=== PATIENT | female | born 1955 | race Caucasian/White ===

== ENCOUNTER → 2016-11-17 | Outpatient (CLI) | payer BC ==
[~2016-11-17] MED LIST: GABAPENTIN300 M2 PO; GABAPENTIN300 MG PO; IRON325 MG PO; LEVAQUIN PO; LOSARTAN-HCTZ1 EAC2 PO; MACROBID 100 M100 MG PO; MELOXICAM15 MG PO; METRONIDAZOLE PO; MOBIC PO; MOBIC15 MG PO; NEURONTIN PO; NEURONTIN300 MG PO; PATIENT'S PHARMACY; POTASSIUM CHLO10 ME1 PO; POTASSIUM99 M1 PO; PREDNISONE10 MG/DOSE; VICODIN 5/500 T1 TAB PO; VITAMIN D400 UNI2 PO; ZESTORETIC 10/11 TAB PO
--- NOTE | ~2016-11-17 | CT57 ---
[facility] A Service of [facility] RADIOLOGY TEXT RESULTS PATIENT: BO ANN LOCATION: [facility] : 59 UNIT #: [id number] AGE: [address]: Tamara Bell MD SEX: F ORDER DR: [id number] [facility] [address] [place], [place] [address] [id number] MR#: [id number] [facility] #: [id number] NAME: BO ANN. : 1955 SEX: F STUDY DATE/TIME: 11/17/2016 13:27 UNIT: CCA ROOM: STUDY DESCRIPTION: CT Chest Wo Cont Attending Physician: Tamara Bell M.D. Referring Physician: Tamara Bell M.D. Ordering Physician: Tamara Bell M.D. Primary Care Physician: Tamara Bell M.D. MEDICAL IMAGING REPORT This report is preliminary unless electronic signature is present EXAM CT chest without contrast. INDICATION Follow up pulmonary nodule. PROCEDURE Unenhanced CT of the chest. This CT exam was performed with one or more of the following radiation dose reduction techniques: automatic exposure control, adjustment of mA and/or kV according to patient size, and iterative reconstruction. COMPARISON CT of the abdomen and pelvis from 11/08/2015. FINDINGS Previously demonstrated subpleural nodule left lung base has resolved and probably represented a small area of atelectasis. There is no dense consolidation or persistent nodule. No adenopathy. No aggressive appearing bone lesions. IMPRESSION Previously demonstrated subpleural nodule left lung base has resolved and probably represented atelectasis. There is no acute finding in the chest and there is no persistent pulmonary nodule. No additional followup is required. Dictated by... Qamar Mckeon M.D. [facility] A Service [facility] RADIOLOGY TEXT RESULTS PATIENT: BO ANN LOCATION: [facility] : 59 UNIT #: [id number] AGE: [address]: Tamara Bell MD SEX: F ORDER DR: THIS IS AN ELECTRONICALLY VERIFIED REPORT Qamar Mckeon M.D. at 11/21/2016 7:07 AM TWIN/elysia TD: 11/20/2016 11:24 JOB #: [id number] MEDICAL IMAGING REPORT Page 1 of 1 COPY
== END | disposition home or self-care (01) ==
LOC: CCAT 12:44
DX: R91.1 Solitary pulmonary nodule (principal)
CPT/HCPCS: 71250

== ENCOUNTER 2016-11-23 09:18 | Inpatient (IN) | payer BC ==
--- NOTE | ~2016-11-23 | EKG ---
PATIENT: BO ANN UNIT #: [id number] Ventricular Rate: 81 BPM Atrial Rate: 81 BPM P-R Interval: 146 ms QRS Duration: 64 ms Q-T Interval: 364 ms QTC Calculation(Bezet): 422 ms P Welton: -6 degrees Calculated R Welton: 46 degrees Calculated T Welton: 47 degrees Diagnosis Line: Normal sinus rhythm Diagnosis Line: Low voltage QRS Diagnosis Line: Nonspecific ST abnormality Diagnosis Line: Abnormal ECG Diagnosis Line: When compared with ECG of 08-NOV-2015 18:47, Diagnosis Line: No significant change was found Diagnosis Line: Confirmed by HOLLY RUTH MD ([id number]) on Diagnosis Line: 11/24/2016 6:48:26 AM INTERPRETING DAVID SAUCEDA
--- NOTE | ~2016-11-23 | A ---
[facility] Therapy DATE: 11/24/16 Patient: BO ANN Physician: NEHA Address: [address] [place] [address] Room/Bed: [address] [place] [address], Zip: [place] [address] Admit Date: 11/23/16 Date of : [birth year] Height: 5 2 Weight: 157 71.5 NUTRITIONAL ASSESSMENT: REASON: 3 pts re: 8# unplanned weight loss 61 y/o female admitted for a crohn's flare up PMH: Crohn's disease, HTN Anthropometrics: ht: 5'2" wt: 157# BMI 28 Labs: K+ 2.6, Ca++ 7.5, Alb 2.5, GFR 41 Meds: tylenol, ferrous gluconate, zofran, NaCl, neurotin I/O & Bowel function: Skin Integrity: scar- abd, left ankle, no edema Diet: NPO for procedure Assessment: Chart reviewed, events noted. Pt is currently NPO awaiting an EGD. RD biomedical engineering internship visited pt at bedside. Pt has had two crohn's flare-ups this year with episodes of diarrhea. The pt reports she is under a lot of stress at work and does not always get to eat three meals a day. She reports her weight being 197# one year ago, indicating a 36# weight loss (18% BW severe). RD biomedical engineering internship stressed the importance of adequate PO intake. RD biomedical engineering internship offered to order her ensure clear or enlive and magic cup once her diet is advanced in order to promote weight maintenance and increase protein-energy intake. Pt was agreeable. RD will continue to follow. Dx: Unintentional weight loss r/t Crohn's disease, stress AEB pt reported 36# weight loss (18% BW) over the past year. Intervention: 1. Ensure supplements + magic cup when diet advances Monitoring, Evaluation and Goals: 1. Weight; maintain healthy weight 2. PO intake; once diet advanced consume/tolerate >50% of meals and/or supplements 3. GI; promote regular GI function Recommendations: 1. Once diet is advanced to clear liquids, please order ensure clear apple BID. [facility] DATE: 11/24/16 Patient: BO ANN Physician: NEHA Address: [address] [place] [address] Room/Bed: [address] [place] [address], Zip: [place] [address] Admit Date: 11/23/16 Date of : [birth year] Height: 5 2 Weight: 157 71.5 2. Once medically feasible, advance the pt to a heart healthy diet. Monitor tolerance of fiberous foods and add low fiber restriction if fiber is not well tolerated. 3. Once diet is advanced to full liquid or solid, please order ensure enlive strawberry BID and magic cup with dinner. 4. Encourage adequate PO intake as tolerated. RD will f/u per protocol as pt is at mild/moderate nutritional risk. Respectfully, ANGIE HUMMEL, clinical nursing intern Sultana Valladares, RD, LD [employer] cc: client file
--- NOTE | ~2016-11-23 | CO ---
Unit #: [id number] #: [id number] Patient: BO ANN [id number] [address] [address] [id number] I MR#: [id number] NAME: BO ANN. ROOM: 560 Age: 61 Sex: F Admission Date: 11/23/2016 : 1955 Attending Physician: Vimal Taveras M.D. Primary Care Physician: Tamara Bell M.D. Consultation Date: 11/23/2016 CONSULTATION REPORT PRIMARY CARE PHYSICIAN Tamara Bell M.D. REASON FOR CONSULTATION Nausea, vomiting, and diarrhea. The patient has known history of Crohn disease and terminal ileal resection. HISTORY OF PRESENT ILLNESS Ms. Adan is a pleasant 61-year-old white female, who is well known to me. She has a remote history of resection of the terminal ileum from Crohn disease and had been doing quite well until she apparently had a severe diarrhea for about 4 to 5 days with watery nonbloody bowel movements with occasional blood on wiping the bottom due to soreness in rectal area. In addition, she also has nausea, vomiting, epigastric pain. She was admitted with hypotension, hypokalemia, and acute kidney injury. The patient was given intravenous fluids and potassium supplementation at the time of admission. PAST MEDICAL HISTORY Significant for history of Crohn disease, status post ileocolonic resection/ anastomosis; history of hypertension. PAST SURGICAL HISTORY Included a partial colon resection. SOCIAL HISTORY Lives with the . Does not smoke or drink alcohol. 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 FAMILY HISTORY Significant for mother having colitis. Father had coronary artery disease. MEDICATIONS At home included meloxicam, gabapentin, iron, potassium, losartan. ALLERGIES To codeine. REVIEW OF SYSTEMS Detailed review of organ systems does not reveal any recent weight loss. No history of fever, chills, or rigors. No history of headache, seizures, chest pain, or syncope. No history of cough, expectoration, or hemoptysis. No history of dysuria, hematuria, or pyuria. No history of focal seizures or extremity weakness. Rest of the review of organ systems Unit #: [id number] #: [id number] Patient: BO ANN are unremarkable. PHYSICAL EXAMINATION GENERAL: She is awake, alert, and oriented, appears comfortable. VITAL SIGNS: Stable with a temperature of 98.4, pulse is 78 per minute and regular, respiratory rate 16, blood pressure is 146/70. HEENT: She has mild pallor. There being no icterus, lymphadenopathy, or peripheral edema. CARDIOVASCULAR: Normal heart sounds. No murmurs on auscultation. LUNGS: Reveal normal breath sounds. Good air entry. ABDOMEN: Soft and nontender. Liver and spleen are not palpable. Bowel sounds normal. DIAGNOSTIC STUDIES LABORATORY RESULTS: Shows urinalysis of 1+ bacteriuria. BUN and creatinine are 22 and 2 indicating acute kidney injury, and albumin is 2.8. CBC shows a hemoglobin of 10.8 with normochromic normocytic indices. CLINICAL IMPRESSION 1. The patient with nausea, vomiting, diarrhea of acute duration. This is most likely infectious enteritis rather than flare-up of Crohn's. 2. Acute kidney injury as a result of volume loss. 3. Hypokalemia for the same reason. 4. Prior history of Crohn disease, status post resection. MANAGEMENT PLAN The patient is already scheduled to have an outpatient colonoscopy; however, suggest doing a flexible sigmoidoscopy and an upper endoscopy later today or tomorrow morning for certain the diagnosis. The patient was reassured that the chances are that this is most likely infectious enteritis. The pros and cons of procedure, potential risks, complications were discussed with the patient and she was reassured. Thank you for asking me to see this pleasant woman. I appreciate the consult. Dictated by... Naida Rosa/rafa TD: 11/25/2016 17:28 JOB #: [id number] CC: Jessa Esparza M.D. CONSULTATION REPORT Page 1 of 1 X Akash Daniel MD X CONSULTATION REPORT
--- NOTE | ~2016-11-23 | OR ---
Unit #: [id number] #: [id number] Patient: BO ANN [id number] [address] [address] [id number] I MR#: [id number] NAME: OB ANN. ROOM: 560 Date of Procedure: 11/24/2016 Admission Date: 11/23/2016 Surgeon: Akash Daniel M.D. : 1955 Attending Physician: Vimal Taveras M.D. Primary Care Physician: Tamara Bell M.D. OPERATIVE REPORT ADDITIONAL ATTENDING PHYSICIAN Dr. Vimal Taveras. PRIMARY CARE PHYSICIAN Tamara Bell M.D. PREOPERATIVE DIAGNOSES Nausea, vomiting, diarrhea. The patient with history of Crohn disease, status post terminal ileal resection. PROCEDURES PERFORMED Upper gastrointestinal endoscopy and sigmoidoscopy. POSTOPERATIVE DIAGNOSES For upper endoscopy: The patient has small hiatus hernia. Otherwise, normal examination up to third part of the duodenum. For sigmoidoscopy: The examination was done up to the splenic flexure. The esophagus was noted to be consistent with diffuse infectious colitis and linear ulcers and exudate throughout the examined part of colon. Multiple biopsies were obtained from these areas and sent for histology. It is noteworthy that these changes of colitis are not related to underlying Crohn's or most likely infectious colitis. RECOMMENDATIONS The patient is discharged home on a combination of metronidazole and Levaquin and needed to follow up with me in the office in 4 to 6 weeks' time. SEDATION USED MAC. DESCRIPTION OF PROCEDURE Following detailed explanation of potential risks and complications of an upper endoscopy and a sigmoidoscopy, namely perforation, bleeding, and complications related to sedation, the patient was brought to GI lab and laid in the left lateral decubitus position. Lubricated tip of the Olympus video upper endoscope was passed through bite block into the proximal esophagus under direct vision. The entire esophageal mucosa was examined and appeared normal except for presence of small hiatus hernia. The scope was then advanced into the gastric cavity and the latter was Unit #: [id number] #: [id number] Patient: BO ANN insufflated. Mucosa of the fundus, body, and antrum was examined and appeared unremarkable. Pylorus was intubated with visualization of the normal duodenal bulb and second and third part of duodenum. Upon withdrawal and retroflexion; incisura, cardia, and greater curve was examined and no additional findings were noted. The scope was then withdrawn in the distal esophagus. The entire esophageal mucosa was examined all the way up to pharynx. No additional findings were noted. The examination table was then turned by 180 degrees and the patient positioned for a colonoscopy/sigmoidoscopy. A digital rectal examination was performed, which was normal. Lubricated tip of the Olympus video colonoscope was inserted through the anus and advanced under direct vision. The scope was advanced past rectosigmoid into descending colon. The patient was noted to have changes of diffuse colitis with linear erosions, ulcers, and erythema as well as exudates throughout the entire part of the colon examined up to splenic flexure. Successive segments of the colonic mucosa were examined upon withdrawal and showed diffuse colitis as mentioned earlier. No diverticula were seen. The patient did not have any hemorrhoids. Multiple biopsies were obtained from the sigmoid colon and sent for histology. The scope was then withdrawn and the patient returned to the recovery area. She tolerated the procedure without any postprocedure complications. Dictated by... Naida Rosa/rafa TD: 11/25/2016 15:35 JOB #: [id number] CC: Jessa Esparza M.D. OPERATIVE REPORT Page 1 of 1 X Akash Daniel MD X PROCEDURE OPERATIVE NOTE
--- NOTE | ~2016-11-23 | US77 ---
[facility] A Service of [facility] RADIOLOGY TEXT RESULTS PATIENT: BO ANN LOCATION: B 560-01 : [birth year] UNIT #: [id number] AGE: [address]: Vimal Taveras MD SEX: F ORDER DR: [id number] [facility] [address] [place], [place] [address] [id number] MR#: [id number] #: [id number] NAME: BO ANN. : 1955 SEX: F STUDY DATE/TIME: 11/23/2016 13:38 UNIT: [facility] ROOM: [facility] STUDY DESCRIPTION: US Kidney Bilateral Complete Attending Physician: Vimal Taveras M.D. Ordering Physician: Watson Lobo M.D. Primary Care Physician: Tamara Bell M.D. MEDICAL IMAGING REPORT This report is preliminary unless electronic signature is present EXAM Bilateral renal ultrasound, 11/23/2016. HISTORY Acute renal failure/acute renal insufficiency. Symptoms began 2 weeks ago, per patient. No known injury. Additional stated history of Crohn disease, hypertension, vomiting, and diarrhea for 2 weeks. History of liver cyst on previous CT. GFR 26.7, BUN 22, Creatinine 2.0. COMPARISON CT abdomen and pelvis with contrast, 11/08/2015. No previous renal ultrasound at this institution for comparison. FINDINGS Right kidney measures 11.7 x 4.5 x 3.8 cm. The left kidney measures 5.5 x 9.8 x 5.2 cm. Both kidneys maintain normal cortical thickness and cortical echotexture. No shadowing renal stone or hydronephrosis is seen. No cystic or solid renal mass is identified, either. Portions of the left kidney are obscured by bowel gas. The urinary bladder is nondistended, but appears unremarkable. IMPRESSION Normal bilateral renal ultrasound. No hydronephrosis. Dictated by... Yanet Mar M.D. THIS IS AN ELECTRONICALLY VERIFIED REPORT Yanet Mar M.D. at 11/27/2016 8:35 AM NYA/gautam TD: 11/24/2016 12:10 [facility] A Service of [facility] RADIOLOGY TEXT RESULTS PATIENT: BO ANN LOCATION: [facility] 560-01 LOCATED [facility]IN [facility] #: [id number] : [birth year] UNIT #: [id number] AGE: [address]: Vimal Taveras MD SEX: F ORDER DR: NICO #: [id number] MEDICAL IMAGING REPORT Page 1 of 1 COPY
--- NOTE | ~2016-11-23 | HP ---
Unit #: [id number] #: [id number] Patient: BO ANN [id number] [place] [id number] I MR#: [id number] NAME: BO ANN. ROOM: 26348 Age: 61 Sex: F Admission Date: 11/23/2016 : 1955 Attending Physician: Jessa Esparza M.D. Primary Care Physician: Tamara Bell M.D. HISTORY AND PHYSICAL CHIEF COMPLAINT Crohn flareup, low blood pressure yesterday. HISTORY OF PRESENT ILLNESS The patient is a 61-year-old female with a past medical history of Crohn disease and hypertension, who presented to the emergency department for evaluation of the above. The patient states that she has been feeling bad for about two weeks. She reports increasing generalized weakness. She has had intermittent crampy abdominal pain. She has also had vomiting and diarrhea. She reports one bout of nonbloody emesis within the past 24 hours. She states that she has had about 10 bouts of nonbloody diarrhea within the past 24 hours. She states that she has lost about 15 pounds over the past 6 months. She has not been taking her blood pressure medication for the past week. She states that she was afraid that it might make her feel worse. She saw her primary care physician on 11/09/2016 and was told that her potassium was low. She has been taking a potassium supplement. She was supposed to return to her primary care physician in a couple of weeks for followup of the low potassium. She also saw Dr. Daniel's nurse practitioner on 11/20/2016 regarding abdominal pain, vomiting and diarrhea. She was scheduled for colonoscopy, but not placed on any antibiotics or steroids. In the emergency department today blood pressure was 109/69. Laboratory notable for potassium of 2.4, BUN 22, creatinine 2. Urinalysis shows trace leukocyte esterase, 1+ bacteria. She was given 1 liter of normal saline in the emergency department as well as 60 mEq of potassium p.o. She is being admitted to [facility] for evaluation and further treatment. PAST MEDICAL HISTORY 1. Admission to [facility] 11/07/2016 through 11/09/2016 for acute flare of Crohn disease. She was discharged on p.o. steroids and Macrobid for e-coli urinary tract infection. In the course of her evaluation she was noted to have multiple foci of low density in the liver, likely small cysts. She was to follow up with her primary care physician regarding that. Additionally, she had a 3 mm noncalcified pulmonary nodule in the left lung base. She had a CT of the chest on 11/17/2016 that showed resolution of the lung nodule and no acute findings. 2. Crohn disease. Followed by Dr. Daniel, status post partial colon resection with ileocolonic anastomosis. She is not currently on any medication for the Crohn disease. 3. Hypertension. Unit #: [id number] #: [id number] Patient: BO ANN PAST SURGICAL HISTORY 1. Partial colon resection with ileocolonic anastomosis. 2. Colonoscopy 06/05/2014 showed localized ulceration of the ileocolonic anastomosis as well as a splenic flexure. Diverticulosis was also noted. Pathology report from the biopsy showed histologic findings consistent with Crohn active colitis. No malignancy was identified. SOCIAL HISTORY The patient lives with her . There is no tobacco or alcohol use. 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 FAMILY HISTORY Notable for her mother having colitis. The patient is unsure if it was ulcerative colitis. Her dad had coronary artery disease. ALLERGIES Codeine. HOME MEDICATIONS 1. Losartan/HCTZ 100/12.5 mg daily. 2. Meloxicam 15 mg daily. 3. Gabapentin 600 mg t.i.d. 4. Iron 325 mg daily. 5. Potassium daily. REVIEW OF SYSTEMS A complete review of systems is negative except as indicated in the history of present illness. The patient also states that she has been on a "low sugar diet" since being told that her blood sugar was borderline elevated. PHYSICAL EXAMINATION GENERAL: The patient is a very pleasant female who is awake and alert, in no acute distress. VITALS: Temperature 97.4, pulse 90, respiratory rate 16, blood pressure 109/69, oxygen saturation 100% on room air. HEENT: The head is atraumatic. Mucous membranes are dry. NECK: Supple. Trachea midline. LUNGS: Clear to auscultation bilaterally with no increased work of breathing. HEART: Regular rate and rhythm. ABDOMEN: Soft. She is mildly tender to palpation in the epigastric area. Bowel sounds are present in all four quadrants. EXTREMITIES: Nontender with no pedal edema. NEUROLOGIC: The patient is awake and alert. She follows commands. PSYCHIATRIC: Mood and affect are normal. The patient is cooperative. SKIN: Skin of examined areas is warm and dry. DIAGNOSTIC STUDIES LABORATORY: CBC notable for a hemoglobin of 10.8, hematocrit 32.6, MCV 80.2, RDW 13.6. Urinalysis notable for trace leukocyte esterase, trace protein, 1+ bacteria. CMP notable for potassium 2.4, BUN 22, creatinine 2, calcium 8.2, but corrects when albumin of 2.8 is accounted for. ASSESSMENT The patient is a 61-year-old female with 1. Acute kidney injury. The patient's creatinine is has previously been Unit #: [id number] #: [id number] Patient: BO ANN less than 1. It is 2 today. She has had vomiting and diarrhea. She is also on losartan/HCTZ and meloxicam, which could be contributing. 2. Hypokalemia. The patient has been on potassium supplement. She is on hydrochlorothiazide, which could be contributing. She received 60 mEq of potassium in the emergency department. 3. Nausea, vomiting and diarrhea. This has been going on for about two weeks. She saw Dr. Daniel's nurse practitioner this week and was not started on any steroids or antibiotics. 4. Abdominal pain. 5. History of Crohn disease. 6. Hypertension, although the patient's blood pressure has reportedly been running low. She states that it was 85/58 yesterday at work. Today it is 106/69. She has been holding all of her antihypertensive medications for the past week. PLAN 1. Admit to intermediate level for observation. 2. Normal saline at 125 cc an hour. 3. Advance diet to clear liquids as tolerated. 4. Urine, creatinine, sodium and eosinophils. 5. Renal ultrasound. 6. Strict ins and outs. 7. Hold nephrotoxic medications. 8. Will adjust dose of gabapentin due to acute kidney injury. 9. Replace potassium. 10. Check magnesium level. 11. Repeat BMP later this afternoon to follow up hypokalemia. 12. Check EKG and cardiac enzymes. 13. Orthostatics q. shift. 14. Fall precautions. 15. Monitor blood pressure closely. 16. Consult Dr. Daniel, the patient's electrical apprentice regarding abdominal pain and possible Crohn flare. 17. Stool studies, including ova and parasite, c-diff, culture and sensitivity. 18. Repeat labs in the morning. 19. P.r.sherif Zofran. 20. SCDs for DVT prophylaxis. 21. Additional workup and consultants based on the above. Dictated by Naida Funes/brandi TD: 11/23/2016 13:29 JOB #: [id number] Unit #: [id number] #: [id number] Patient: BO ANN HISTORY AND PHYSICAL Page 1 of 1 X Jessa Esparza MD X HISTORY AND PHYSICAL
[~2016-11-23 09:18] MED LIST changes: -GABAPENTIN300 MG PO; -IRON325 MG PO; -LEVAQUIN PO; -METRONIDAZOLE PO; -PATIENT'S PHARMACY; -POTASSIUM99 M1 PO
[2016-11-23 10:26] LABS: BASOPHIL% 0.5 % (0-2.5); EOSINOPHIL# 0.1 X10e3 (0-0.7); HEMATOCRIT 32.6 % (35.0-45.0); HEMOGLOBIN 10.8 gm/dL (12.0-16.0); LYMPHOCYTE# 1.1 X10e3 (1.0-3.5); LYMPHOCYTE% 15.2 % (17.0-45.0); MEAN CELL VOLUME 80.2 FL (83-96); MEAN CORPUSCULAR HEMOGLOBIN 26.5 PG (28-34); MEAN PLATELET VOLUME 8.3 FL (6.5-11.5); MONOCYTE% 13.7 % (3.0-12.0); NEUTROPHIL% 68.6 % (40-75); PLATELET COUNT 300 X10e3 (140-420); RED BLOOD COUNT 4.07 X10e (3.90-5.30); RED CELL DISTRIBUTION WIDTH 13.6 % (11.0-15.5); WHITE BLOOD COUNT 7.3 X10e3 (4.0-10.5)
[2016-11-23 10:28] LABS: DIFF IND NO
[2016-11-23 10:30] LABS: URINE SOURCE CLEAN CATCH
[2016-11-23 10:33] LABS: URINE APPEARANCE CLEAR; URINE BILIRUBIN NEG (NEG); URINE BLOOD NEG (NEG); URINE COLOR YELLOW; URINE GLUCOSE NEG (NEG); URINE KETONE TRACE (NEG); URINE LEUKOCYTE ESTERASE TRACE (NEG); URINE NITRATE NEG (NEG); URINE PROTEIN TRACE (NEG); URINE SPECIFIC GRAVITY 1.011 (1.003-1.035); URINE UROBILINOGEN 0.2 MG/DL (NEG)
[2016-11-23 10:37] LABS: CULTURE INDICATED? YES; URINE BACTERIA AUWI 1+ (NEGATIVE); URINE SQUAMOUS EPITHELIAL CELL FEW /[HPF]
[2016-11-23 11:04] LABS: ALBUMIN SERUM 2.8 g/dL (3.5-5.0); BILIRUBIN, DIRECT 0.1 mg/dL (0.0-0.2); BILIRUBIN,INDIRECT 0.2 mg/dL (0.0-0.9); BILIRUBIN,TOTAL 0.3 mg/dL (0.2-2.0); CALCIUM SERUM 8.2 mg/dL (8.4-10.2); GLOM FILT RATE Estimated 26.7 mL/min (>60); PROTEIN TOTAL SERUM 6.6 g/dL (6.0-8.3)
[2016-11-23 11:08] LABS: POTASSIUM 2.4 mmol/L (3.5-5.1)
[2016-11-23] MEDS ORDERED: LOSARTAN-HCTZ1 EAC2 PO (12:38)
[2016-11-23] MEDS ORDERED: GABAPENTIN300 MG PO (12:38)
[2016-11-23] MEDS ORDERED: PATIENT'S PHARMACY (12:38)
[2016-11-23] MEDS ORDERED: MOBIC15 MG PO (12:38)
[2016-11-23] MEDS ORDERED: IRON325 MG PO (12:38)
[2016-11-23] MEDS ORDERED: POTASSIUM99 M1 PO (12:39)
[2016-11-23 14:40] LABS: CK TOTAL 51 IU/L (26-140)
[2016-11-23 17:54] LABS: BUN/CREATININE RATIO 12.66; CREATININE SERUM 1.5 mg/dL (0.6-1.4); GLOM FILT RATE Estimated 37.8 mL/min (>60); POTASSIUM 3.5 mmol/L (3.5-5.1)
[2016-11-23 20:21] LABS: CK TOTAL 49 IU/L (26-140)
[2016-11-23 21:07] LABS: CREATININE,RANDOM URINE 175 mg/dL; SODIUM URINE RANDOM 38 mmol/L
[2016-11-24 02:00] LABS: BASOPHIL% 0.3 % (0-2.5); EOSINOPHIL# 0.1 X10e3 (0-0.7); EOSINOPHIL% 1.9 % (0.0-7.0); HEMATOCRIT 30.4 % (35.0-45.0); HEMOGLOBIN 9.9 gm/dL (12.0-16.0); LYMPHOCYTE# 1.2 X10e3 (1.0-3.5); LYMPHOCYTE% 17.3 % (17.0-45.0); MEAN CELL VOLUME 80.9 FL (83-96); MEAN CORPUSCULAR HEMOGLOBIN 26.3 PG (28-34); MEAN CORPUSCULAR HGB CONC 32.5 g/dL (30-36); MEAN PLATELET VOLUME 8.1 FL (6.5-11.5); MONOCYTE# 1.2 X10e3 (0-1.0); MONOCYTE% 17.5 % (3.0-12.0); NEUTROPHIL# 4.2 X10e3 (1.5-7.1); PLATELET COUNT 319 X10e3 (140-420); RED BLOOD COUNT 3.76 X10e (3.90-5.30); RED CELL DISTRIBUTION WIDTH 13.5 % (11.0-15.5); WHITE BLOOD COUNT 6.7 X10e3 (4.0-10.5)
[2016-11-24 02:03] LABS: DIFF IND NO
[2016-11-24 02:20] LABS: CK TOTAL 45 IU/L (26-140)
[2016-11-24 03:17] LABS: ALBUMIN SERUM 2.5 g/dL (3.5-5.0); BILIRUBIN,TOTAL 0.6 mg/dL (0.2-2.0); BUN/CREATININE RATIO 10.71; CALCIUM SERUM 7.5 mg/dL (8.4-10.2); CREATININE SERUM 1.4 mg/dL (0.6-1.4); MAGNESIUM 1.7 mg/dL (1.6-3.0); PROTEIN TOTAL SERUM 5.8 g/dL (6.0-8.3)
[2016-11-24 03:21] LABS: POTASSIUM 2.6 mmol/L (3.5-5.1)
[2016-11-25 05:19] LABS: HEMATOCRIT 27.7 % (35.0-45.0); HEMOGLOBIN 9.2 gm/dL (12.0-16.0); MEAN CELL VOLUME 80.5 FL (83-96); MEAN CORPUSCULAR HEMOGLOBIN 26.6 PG (28-34); MEAN CORPUSCULAR HGB CONC 33.1 g/dL (30-36); MEAN PLATELET VOLUME 7.9 FL (6.5-11.5); RED BLOOD COUNT 3.44 X10e (3.90-5.30); RED CELL DISTRIBUTION WIDTH 13.4 % (11.0-15.5); WHITE BLOOD COUNT 5.8 X10e3 (4.0-10.5)
[2016-11-25 09:12] LABS: BUN/CREATININE RATIO 7.27; CREATININE SERUM 1.1 mg/dL (0.6-1.4); GLOM FILT RATE Estimated 54.9 mL/min (>60)
[2016-11-25 09:15] LABS: POTASSIUM 2.9 mmol/L (3.5-5.1)
[2016-11-25] MEDS ORDERED: METRONIDAZOLE PO (15:33)
[2016-11-25] MEDS ORDERED: LEVAQUIN PO (15:34)
== END 2016-11-25 16:30 | disposition home or self-care (01) | DRG 392 ==
LOC: CED 09:18 → CEDOF 12:03 → CED 12:03 → C5B 12:03 → CEDOF 13:09 → CED 13:09 → CEDOF 16:26 → C5B 16:26
PROVIDERS: Emergency Medicine; Family Medicine; Internal Medicine; Internal Medicine Gastroenterology
PROC: 0DJ08ZZ Inspection of Upper Intestinal Tract, Via Natural or Artificial Opening Endoscopic (ICD-10-PCS; principal; 2016-11-24 14:42)
PROC: 0DBN8ZX Excision of Sigmoid Colon, Via Natural or Artificial Opening Endoscopic, Diagnostic (ICD-10-PCS; 2016-11-24 14:42)
DX: A09 Infectious gastroenteritis and colitis, unspecified (principal); N17.9 Acute kidney failure, unspecified; I10 Essential (primary) hypertension; E87.6 Hypokalemia; K44.9 Diaphragmatic hernia without obstruction or gangrene
CPT/HCPCS: 36415; 76770; 80048; 80053; 80076; 81003; 82550; 82570; 83735; 84132; 84300; 84484; 85025; 85027; 87040; 87045; 87086; 87177; 87209; 87427; 87493; 87899; 88305; 89190; 93005; 99285; J2250; J3475